=== PATIENT | male | born 2000 | race Hispanic/Latino ===

== ENCOUNTER 2023-04-28 19:26 | Emergency (ER) | payer OTHER, SELFPAY ==
[2023-04-28 19:27] VITALS: BP 137/83; PULSE 71; RESP 15; TEMP 36.7; O2SAT 98; BMI 27.3
[2023-04-28] MEDS: Lidocaine 1% (20 ml mdv) 20 ML Vial INFILT (19:51)
--- NOTE | 2023-04-28 20:58 | EDS_ITS ---
HPI History of Present Illness Chief Complaint: Laceration Detail of Chief Complaint: Laceration dorsum left hand proximal to the MCP joint index finger Informant: patient and friend Limited: language barrier Occured/Mechanism Mechanism/Context: Yes blunt trauma Comment: Patient was working at the [employer] in [place]. He was removing a door. He sustained a laceration of the door hinge. Onset/Context/Timing Onset: Hours Context: Sudden Onset Timing: Continuous Quality of Pain: Throbbing Current Severity: Mild Maximum Severity: Mild Worsened by: Movement Relieved by: Remaining still Associated Symptoms Associated Symptoms: Negative for Parasthesia, Weakness or Loss of Funtion Narrative Narrative: Patient is a 23-year-old [id number] male from [facility] who injured himself at work. He is seen laceration dorsum of the left hand proximal to the MCP joint of left index finger. Immunizations up-to-date. He denies paresthesia, anesthesia or motor weakness. He denies allergy he is present on no medication. Tetanus Immunization: <5 years Prior similar symptoms: No Recent Illness/Hospitalization: No PFSH PFSH Medical History no medical history no medical history Allergy/AdvReac Type Severity Reaction Status Date / Time No Known Allergies Allergy Verified 04/28/23 19:29 Surgical History no surgical history no surgical history Social History (Updated 04/28/23 @ 21:[address] 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 Smoking Status: Never smoker ROS ROS ED Constitutional Constitutional ED: Denies chills, fever(s), subjective or sweats Integumentary Reports other Details: Laceration hand Neurologic Neurologic: Denies paresthesias or weakness Hematologic/Lymphatic Hematologic/Lymphatic: Denies easy bleeding or easy bruising EXAM Physical Exam Const Vital Signs: 04/28/23 19:27 Temperature 98.1 F Temperature Source Temporal Pulse Rate 71 Respiratory Rate 15 Blood Pressure 137/83 H Blood Pressure Mean 101 Pulse Ox 98 Oxygen Delivery Method Room Air Positive well nourished and well developed General Appearance ED: well developed and NAD HEENT Reports moist mucous membranes normocephalic and atraumatic Eyes PERRL and EOMs intact bilaterally Neck full ROM and supple Resp normal respiratory effort Cardio regular rate and regular rhythm Extremity full ROM; Negative for normal to inspection Extremity Narrative: 3.5 cm laceration dorsum of the left hand in the proximity of the MCP joint of his left index finger. Sensation is intact. 2-8 discrimination is intact. Capillary fill is normal. The extensor and slight tendon is functionally intact. Median, radial and ulnar function intact. The laceration does not violate the tendon sheaths. Neuro oriented x3, CN's II-XII intact bilaterally, moves all extremities, no focal motor deficits and no sensory deficits noted Sensorium / Orientation: alert Skin Skin Narrative: Laceration of left hand MDM MDM MDM Narrative Medical decision making narrative: Patient has a laceration which will require repair. Patient was prepped draped sterile manner. The area was Nestabs with 1% lidocaine by local infiltration. 2 cc of lidocaine was infiltrated. Wound was irrigated with 100 cc of normal saline. Using 5-0 Ethilon a total of 8 stitches was placed. Discharge Plan Triage Chief Complaint: Laceration ED Provider: Jairo Mac Dx/Rx/DC Orders Clinical Impression: Laceration of hand, left Primary Care Provider: Care Physician,No Primary Referrals: [facility] [Group of Physicians] - 10 Day for suture removal Care Physician,No Primary [Primary Care Provider] - Activity Restrictions/Additional Instructions: 1. Keep wound clean and dry 2. Apply bacitracin ointment 3 times a day Print Language: Turkmen Disposition Disposition: Home, Self Care
[2023-04-28 21:18] VITALS: BP 128/60; PULSE 75; RESP 16
== END 2023-04-28 21:19 | disposition home or self-care (01) ==
PROVIDERS: Emergency Provider Emergency Medicine; Visit Provider Emergency Medicine
DX: S61.412A Laceration without foreign body of left hand, initial encounter (principal); Y99.0 Civilian activity done for income or pay; X58.XXXA Exposure to other specified factors, initial encounter
CPT/HCPCS: 12002; 99284